=== PATIENT | male | born 1980 | race Caucasian/White ===

== ENCOUNTER 2018-03-02 23:50 | Emergency (ER) | payer OTHER ==
[2018-03-02 23:57] VITALS: BP 134/85
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
== END 2018-03-03 00:43 | disposition home or self-care (01) ==
LOC: ED 23:50
DX: R07.81 Pleurodynia (principal); V89.2XXA Person injured in unspecified motor-vehicle accident, traffic, initial encounter; Y92.9 Unspecified place or not applicable; Y93.9 Activity, unspecified; Y99.9 Unspecified external cause status
CPT/HCPCS: 71100; 99282